=== PATIENT | female | born 1945 | race Caucasian/White ===

== ENCOUNTER → 2018-06-01 | Outpatient (CLI) | payer OTHER ==
[~2018-06-01] MED LIST: DOXYCYCLINE MO100 MG PO; DOXYCYCLINE100 M4 PO; FLAGYL250 MG PO; FLAGYL500 MG PO; LISINOPRIL AND1 TA1 PO; LOSARTAN POTASS1 TA2 PO; MEDROL DOSEPAK4 MG PO; PANTOPRAZOLE40 M1 PO; PHENERGAN W/CO120 ML PO; PREDNISONE20 MG PO; SYNTHROID,LEVO75 MCG; SYNTHROID0.075 MG PO; Synthroid,Levo50 MCG PO; VITAMIN B125000 MCG PO; VITAMIN D22000 UNIT PO
--- NOTE | ~2018-06-01 | HM ---
[place], [place] HOLTER MONITOR REPORT NAME: LARRY BURTON UNIT #: [id number] ROOM: DOCTOR: LUIS QUAN [facility],[place] BIRTHDATE: [birth year] DOS: 06/03/2018 HOLTER MONITOR REPORT FINDINGS: 1. Sinus. 2. Frequent PACs and PVCs. 3. No extreme tachycardia or bradycardia. 4. No sustained or nonsustained ventricular tachycardia. 5. No conduction abnormalities and a fairly benign Holter monitor 48 hours. If symptomatic, may adjust the doses of beta blocking agents. FREDY SMITH MD CM:HOLTER:HOLTER MONITOR REPORT [id number] FREDY SMITH MD [facility]
== END | disposition home or self-care (01) ==
LOC: CARD 08:25
DX: I34.0 Nonrheumatic mitral (valve) insufficiency (principal); I10 Essential (primary) hypertension; Z82.49 Family history of ischemic heart disease and other diseases of the circulatory system; Z79.899 Other long term (current) drug therapy

== ENCOUNTER → 2019-08-21 | Outpatient (CLI) | payer OTHER | END | disposition home or self-care (01) | LOC: RAD 16:40 | DX: J45.20 Mild intermittent asthma, uncomplicated (principal) ==

== ENCOUNTER → 2019-08-29 | Outpatient (CLI) | payer OTHER | END | disposition home or self-care (01) | LOC: RAD 09:25 | DX: J18.9 Pneumonia, unspecified organism (principal); I10 Essential (primary) hypertension ==

== ENCOUNTER → 2019-12-04 | Outpatient (CLI) | payer OTHER | END | disposition home or self-care (01) | LOC: RAD 09:40 | DX: M85.80 Other specified disorders of bone density and structure, unspecified site (principal); Z13.820 Encounter for screening for osteoporosis; Z78.0 Asymptomatic menopausal state; Z90.710 Acquired absence of both cervix and uterus ==

== ENCOUNTER 2021-07-13 10:35 | Emergency (ER) | payer OTHER ==
[~2021-07-13] VITALS: Ht 160 cm; Wt 55.8 kg
[2021-07-13 10:51] VITALS: BP 112/63
== END 2021-07-13 13:23 | disposition home or self-care (01) ==
LOC: ED 10:35
DX: U07.1 COVID-19 (principal); Z88.6 Allergy status to analgesic agent; Z88.8 Allergy status to other drugs, medicaments and biological substances; Z79.899 Other long term (current) drug therapy

== ENCOUNTER 2022-10-05 20:58 | Emergency (ER) | payer OTHER ==
[~2022-10-05] VITALS: Ht 160 cm; Wt 54.4 kg
[2022-10-05 21:03] VITALS: BP 161/74
== END 2022-10-05 23:53 | disposition home or self-care (01) ==
LOC: ED 20:58
DX: S00.83XA Contusion of other part of head, initial encounter (principal); M54.2 Cervicalgia; Z88.8 Allergy status to other drugs, medicaments and biological substances; Z88.2 Allergy status to sulfonamides; Z90.710 Acquired absence of both cervix and uterus; Z90.11 Acquired absence of right breast and nipple; W01.0XXA Fall on same level from slipping, tripping and stumbling without subsequent striking against object, initial encounter; Y93.89 Activity, other specified; Y92.89 Other specified places as the place of occurrence of the external cause; Y99.8 Other external cause status

== ENCOUNTER 2022-10-25 07:05 | Emergency (ER) | payer OTHER ==
[~2022-10-25] VITALS: Ht 162.5 cm; Wt 58.5 kg
[2022-10-25] MEDS ORDERED: PROMETHAZINE-D473 M1 PO (07:57)
[2022-10-25 08:07] LABS: BASO # 0.1 10*3/uL (0.0-0.1); BASO % 0.4 % (0.0-1.0); EOS % 0.1 % (1.0-4.0); HEMATOCRIT 41.9 % (37.0-47.0); LYMPH % 6.9 % (27.0-41.0); MEAN CELL VOLUME 93.3 fl (81.0-99.0); MEAN CORPUSCULAR HGB 30.5 pg (27.0-31.0); MEAN CORPUSCULAR HGB CONC 32.7 g/dl (33.0-37.0); MEAN PLATELET VOLUME 10.8 fl (9.6-12.3); MONO # 1.1 10*3/uL (0.1-1.0); MONO % 7.6 % (3.0-9.0); NEUT # 11.7 10*3/uL (2.3-7.9); NEUT % 84.2 % (47.0-73.0); PLATELET COUNT AUTOMATED 283 10*3/uL (130-400); RED BLOOD COUNT 4.49 10*6/uL (4.10-5.10); WHITE BLOOD COUNT 13.9 10*3/uL (4.8-10.8)
[2022-10-25 08:32] LABS: ALKALINE PHOSPHATASE 112 U/L (46-116); BUN 11 mg/dl (9-23); CHLORIDE 90 mmol/L (98-107); POTASSIUM 3.2 mmol/L (3.4-5.1); SGPT/ALT 15 U/L (10-49)
[2022-10-25 15:17] VITALS: BP 156/78
== END 2022-10-25 16:32 | disposition short-term general hospital (02) ==
LOC: ED 07:05
PROVIDERS: Student in an Organized Health Care Education/Training Program
DX: K57.20 Diverticulitis of large intestine with perforation and abscess without bleeding (principal); Z88.5 Allergy status to narcotic agent; Z88.8 Allergy status to other drugs, medicaments and biological substances; Z90.710 Acquired absence of both cervix and uterus; Z90.11 Acquired absence of right breast and nipple; Z98.890 Other specified postprocedural states